=== PATIENT | female | born 1950 | race Caucasian/White ===

== ENCOUNTER → 2020-12-07 | Outpatient (CLI) | payer MEDICARE, OTHER ==
--- NOTE | 2020-12-07 11:47 | REPMRS ---
Patient History The patient states she had a clinical breast exam in May 2020. Patient is postmenopausal and is nulliparous. Family history of ovarian cancer in maternal grandmother. No Hormone Replacement Therapy covid vaccines 05/2020 left arm. 05/2020 left arm. Patient states no breast complaints today. Patient has signed MRS History Sheet. Digital Woman Screen Mammo: December 07, 2020 - Exam #: [id number] Bilateral CC and MLO view(s) were taken. Technologist: RT Nadya Prior study comparison: August 23, 2009, bilateral digital mammo screening bilat performed at [facility]. April 29, 2003, bilateral digital mammo screening bilat performed at [facility]. FINDINGS: There are scattered fibroglandular densities. Screening. Digital screening (2D) mammography was performed bilaterally in the CC and MLO projections. Additionally, breast tomosynthesis (3D mammography) was performed bilaterally in the CC and MLO projections. Todays exam was compared to the prior exam/exams. By history, the patient has no complaints of a palpable breast abnormality or other significant breast complaints. The breasts are unchanged in size and shape. There are no daphnie-soft tissue densities or spiculated masses. There is no internal architectural distortion. Once again, stable benign appearing calcifications are seen.There are no suspicious daphnie-calcific clusters. Skin thickening or nipple retraction is not present. IMPRESSION: BI-RADS Category 2- Benign Findings. There is no evidence of malignant alteration of the breasts. Followup examination recommended in one year. The Volpara volumetric breast density category is B, there are scattered areas of fibroglandular densities. This mammogram was read [facility] FDA approved computer aided detection system for mammography. The lifetime Tyrer-Cuzick score is 4.6 % Negative x-ray reports should not delay surgical consultation if a dominant or clinically suspicious mass is present. Not all breast cancers can be identified by mammography. Therefore, we recommend that you continue to perform regular breast self-examination and physical examination and then promptly contact your physician of any concerns or changes. Adenosis and dense breasts may obscure an underlying neoplasm. Assessment: BI-RADS/ACR category 2 mammogram. Benign Findings. Recommendation Routine screening mammogram of both breasts in 1 year. Electronically Signed By: Ayaan aVzquez DO 12/07/20 1141
--- NOTE | 2020-12-07 12:04 | DEXAMM ---
INDICATION: Z13.820 [facility] FOR OSTEOPOROSIS. COMPARISON: 11/29/2009, 04/29/2003. TECHNIQUE: Bone density was measured using dual-energy x-ray absorptiometry (DEXA). FINDINGS: AP SPINE L1-L4 BMD 1.325 g/cm2 Young Adult T-Score 1.1 Age Matched Z-Score 2.8. LT FEMUR, TOTAL BMD 0.982 g/cm2 Young Adult T-Score -0.2 Age Matched Z-Score 1.4. LT NECK BMD 0.891 g/cm2 Young Adult T-Score -1.1 Age Matched Z-Score 0.7. RT FEMUR, TOTAL BMD 1.007 g/cm2 Young Adult T-Score 0.0 Age Matched Z-Score 1.6. RT NECK BMD 0.876 g/cm2 Young Adult T-Score -1.2 Age Matched Z-Score 0.6. IMPRESSION: There is normal bone density of the spine. There is low bone density of the left hip. There is low bone density of the right hip. The density of the spine has increased 6.7% since the initial exam on 04/29/2003. The density of the spine increased 7.2% since most recent exam on 11/29/2009. The density of the left hip has decreased 0.9% since initial exam on 04/29/2003. The density of the left hip has increased 2.9% since most recent exam on 11/29/2009. The density of the right hip has decreased 2.1% since the initial exam on 04/29/2003. The density of the right hip has increased 2.4% since the most recent exam on 11/29/2009. FOLLOW-UP: Recommendation for the next bone density exam: 2 years. <Electronically signed by Pavan Rose > 12/07/20 1200
== END ==
LOC: M WHC 10:29
PROVIDERS: ATTEND Registered Nurse
DX: Z12.31 Encounter for screening mammogram for malignant neoplasm of breast (principal); Z13.820 Encounter for screening for osteoporosis; M81.0 Age-related osteoporosis without current pathological fracture

== ENCOUNTER → 2023-10-06 | Outpatient (CLI) | payer MEDICARE, OTHER | LOC: M WHC 11:06 | PROVIDERS: ATTEND Physician Assistant Medical | DX: Z12.31 Encounter for screening mammogram for malignant neoplasm of breast (principal) ==